=== PATIENT | male | born 1990 | race Asian ===

== ENCOUNTER 2019-08-07 22:58 | Emergency (ER) | payer OTHER ==
[~2019-08-07] VITALS: Ht 172.7 cm; Wt 75.0 kg
[2019-08-08 01:15] VITALS: BP 142/79
[2019-08-08] MEDS ORDERED: CEPHALEXIN MONOHYDRATE 500 MG CAPSULE PO ONE (01:30)
== END 2019-08-08 01:39 | disposition home or self-care (01) ==
LOC: EMS 23:00
DX: L03.311 Cellulitis of abdominal wall (principal)